=== PATIENT | female | born 1950 | race Caucasian/White ===

== ENCOUNTER 2019-04-14 01:43 | Emergency (ER) | payer MEDICARE ==
[~2019-04-14] VITALS: Ht 152.4 cm; Wt 61.2 kg
[2019-04-14] MEDS ORDERED: BENZOCAINE ONE 20% MUCOSAL SPRAY. (01:50)
[2019-04-14] MEDS ORDERED: IV RINGERS SOLUTION,LACTATED 1,000 ML IV SCH (01:52)
--- NOTE | 2019-04-14 01:52 | ED.ADGEN ---
Past History Past Medical History: Constipation, GERD, Hypertension, Other Past Surgical History: Cholecystectomy, Other Adult General Chief Complaint Chief Complaint " I took one of my fiber pills and it got stuck.. ".."That was about one... I tried water... bread.. I tried vomiting.. but it still feels like it is stuck... 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 Pt. unable to swallow her saliva. Pt. has not had prior hx of esophageal strictures. Has had hx of gastritis and ulcer on prior EGD. Pt. normally follows with Dr. Perez. Review of Systems Review of Systems Constitutional: Denies fever or chills [] Eyes: Denies change in visual acuity, redness, or eye pain [] HENT: Denies nasal congestion or sore throat [] Complains of foreign body throat. Respiratory: Denies cough or shortness of breath [] Cardiovascular: No additional information not addressed in HPI [] GI: Denies abdominal pain, nausea, vomiting, bloody stools or diarrhea [] : Denies dysuria or hematuria [] Musculoskeletal: Denies back pain or joint pain [] Integument: Denies rash or skin lesions [] Neurologic: Denies headache, focal weakness or sensory changes [] Endocrine: Denies polyuria or polydipsia [] All other systems were reviewed and found to be within normal limits, except as documented in this note. Family History Family History Non-contributory. Current Medications Current Medications Current Medications Medications (Trade) Dose Ordered Sig/Caleb Start Time Stop Time Status Last Admin Dose Admin Benzocaine (Hurricaine One) 1 spray 1X ONCE 04/14/19 02:00 04/14/19 03:06 DC Famotidine (Pepcid Vial) 20 mg 1X ONCE 04/14/19 02:45 04/14/19 03:06 DC 04/14/19 02:50 20 MG Fentanyl Citrate (Fentanyl 2ml Vial) 50 mcg 1X ONCE 04/14/19 02:45 04/14/19 03:06 DC 04/14/19 02:50 50 MCG Lactated Ringer's 1,000 ml @ 100 mls/hr Q10H 04/14/19 01:52 04/14/19 03:27 DC 04/14/19 02:48 100 MLS/HR Allergies Allergies Allergies Coded Allergies Type Severity Reaction Last Updated Verified NSAIDS (Non-Steroidal Anti-Inflamma Allergy Intermediate 04/14/19 Yes morphine Allergy Unknown 04/14/19 Yes Physical Exam Physical Exam Constitutional: in acute distress, non-toxic appearance. [] HENT: Normocephalic, atraumatic, bilateral external ears normal, oropharynx moist, no oral exudates, nose normal. []Unable to swallow saliva. Eyes: PERRLA, EOMI, conjunctiva normal, no discharge. [] Neck: Normal range of motion, glottic level tenderness, supple, no stridor. [] Cardiovascular:Heart rate regular rhythm, no murmur [] Lungs & Thorax: Bilateral breath sounds equal at apexes on auscultation [] Abdomen: Bowel sounds normal, soft, no tenderness, no masses, no pulsatile masses. [] Old surgery scars. Skin: Warm, dry, no erythema, no rash. [] Back: No tenderness, no CVA tenderness. [] Extremities: No tenderness, no cyanosis, no clubbing, ROM intact, no edema. [] Scar Knees. Arthritic changes. Neurologic: Alert and oriented X 3, normal motor function, normal sensory function, no focal deficits noted. [] Psychologic: Affect anxious, judgement normal, mood normal. [] Current Patient Data Vital Signs Vital Signs Date Time Temp Pulse Resp B/P (MAP) Pulse Ox O2 Delivery O2 Flow Rate FiO2 04/14/19 02:49 73 20 145/100 (115) 96 Room Air 04/14/19 01:43 98.0 Lab Results Laboratory Tests Test 04/14/19 02:00 White Blood Count 6.5 x10^3/uL (4.0-11.0) Red Blood Count 4.67 x10^6/uL (3.50-5.40) Hemoglobin 13.2 g/dL (12.0-15.5) Hematocrit 40.5 % (36.0-47.0) Mean Corpuscular Volume 87 fL (79-100) Mean Corpuscular Hemoglobin 28 pg (25-35) Mean Corpuscular Hemoglobin Concent 33 g/dL (31-37) Red Cell Distribution Width 15.6 % (11.5-14.5) H Platelet Count 269 x10^3/uL (140-400) Neutrophils (%) (Auto) 59 % (31-73) Lymphocytes (%) (Auto) 29 % (24-48) Monocytes (%) (Auto) 9 % (0-9) Eosinophils (%) (Auto) 3 % (0-3) Basophils (%) (Auto) 0 % (0-3) Neutrophils # (Auto) 3.9 x10^3uL (1.8-7.7) Lymphocytes # (Auto) 1.9 x10^3/uL (1.0-4.8) Monocytes # (Auto) 0.6 x10^3/uL (0.0-1.1) Eosinophils # (Auto) 0.2 x10^3/uL (0.0-0.7) Basophils # (Auto) 0.0 x10^3/uL (0.0-0.2) Prothrombin Time 10.0 SEC (9.4-11.4) Prothrombin Time INR 1.0 (0.9-1.1) PTT 24 SEC (23-33) Sodium Level 140 mmol/L (136-145) Potassium Level 3.8 mmol/L (3.5-5.1) Chloride Level 106 mmol/L (98-107) Carbon Dioxide Level 25 mmol/L (21-32) Anion Gap 9 (6-14) Blood Urea Nitrogen 28 mg/dL (7-20) H Creatinine 0.8 mg/dL (0.6-1.0) Estimated GFR (Cockcroft-Gault) 71.3 Glucose Level 122 mg/dL (70-99) H Calcium Level 8.5 mg/dL (8.5-10.1) Magnesium Level 2.1 mg/dL (1.8-2.4) Total Bilirubin 0.3 mg/dL (0.2-1.0) Direct Bilirubin 0.1 mg/dL (0.0-0.2) Aspartate Amino Transferase (AST) 70 U/L (15-37) H Alanine Aminotransferase (ALT) 124 U/L (14-59) H Alkaline Phosphatase 86 U/L (46-116) Creatine Kinase 127 U/L (26-192) Troponin I Quantitative < 0.017 ng/mL (0-0.055) BD-Fsd-F-Type Natriuretic Peptide 76 pg/mL (0-124) Total Protein 6.9 g/dL (6.4-8.2) Albumin 3.6 g/dL (3.4-5.0) Lipase 158 U/L (73-393) EKG EKG [] Radiology/Procedures Radiology/Procedures My interpretation of Chest Xray- no acute cardiopulmonary changes. Clips Rt. upper abd. [] Course & Med Decision Making Course & Med Decision Making Pertinent Labs and Imaging studies reviewed. (See chart for details) Discussed presentation, testing and tx plan with Dr. Dawkins and Dr. Isaac - GI at [facility]. Pt. to be transfer to [facility] [] Final Impression Final Impression 1. Dysphagia[]-Pill lodged in throat 2. Mild Elevation AST/ALT 70/129 3. Elevated Glucose 122 4. Elevated BUN 28 Dragon Disclaimer Dragon Disclaimer This electronic medical record was generated, in whole or in part, using a voice recognition dictation system. Discharge Summary Visit Information Final Diagnosis Problems Medical Problems: (1) Foreign body Status: Acute Brief Hospital Course Allergies Allergies Coded Allergies Type Severity Reaction Last Updated Verified NSAIDS (Non-Steroidal Anti-Inflamma Allergy Intermediate 04/14/19 Yes morphine Allergy Unknown 04/14/19 Yes Vital Signs Vital Signs Date Time Temp Pulse Resp B/P (MAP) Pulse Ox O2 Delivery O2 Flow Rate FiO2 04/14/19 02:49 73 20 145/100 (115) 96 Room Air 04/14/19 01:43 98.0 Lab Results Laboratory Tests Test 04/14/19 02:00 White Blood Count 6.5 x10^3/uL (4.0-11.0) Red Blood Count 4.67 x10^6/uL (3.50-5.40) Hemoglobin 13.2 g/dL (12.0-15.5) Hematocrit 40.5 % (36.0-47.0) Mean Corpuscular Volume 87 fL (79-100) Mean Corpuscular Hemoglobin 28 pg (25-35) Mean Corpuscular Hemoglobin Concent 33 g/dL (31-37) Red Cell Distribution Width 15.6 % (11.5-14.5) Platelet Count 269 x10^3/uL (140-400) Neutrophils (%) (Auto) 59 % (31-73) Lymphocytes (%) (Auto) 29 % (24-48) Monocytes (%) (Auto) 9 % (0-9) Eosinophils (%) (Auto) 3 % (0-3) Basophils (%) (Auto) 0 % (0-3) Neutrophils # (Auto) 3.9 x10^3uL (1.8-7.7) Lymphocytes # (Auto) 1.9 x10^3/uL (1.0-4.8) Monocytes # (Auto) 0.6 x10^3/uL (0.0-1.1) Eosinophils # (Auto) 0.2 x10^3/uL (0.0-0.7) Basophils # (Auto) 0.0 x10^3/uL (0.0-0.2) Prothrombin Time 10.0 SEC (9.4-11.4) Prothromb Time International Ratio 1.0 (0.9-1.1) Activated Partial Thromboplast Time 24 SEC (23-33) Sodium Level 140 mmol/L (136-145) Potassium Level 3.8 mmol/L (3.5-5.1) Chloride Level 106 mmol/L (98-107) Carbon Dioxide Level 25 mmol/L (21-32) Anion Gap 9 (6-14) Blood Urea Nitrogen 28 mg/dL (7-20) Creatinine 0.8 mg/dL (0.6-1.0) Estimated GFR (Cockcroft-Gault) 71.3 Glucose Level 122 mg/dL (70-99) Calcium Level 8.5 mg/dL (8.5-10.1) Magnesium Level 2.1 mg/dL (1.8-2.4) Total Bilirubin 0.3 mg/dL (0.2-1.0) Direct Bilirubin 0.1 mg/dL (0.0-0.2) Aspartate Amino Transf (AST/SGOT) 70 U/L (15-37) Alanine Aminotransferase (ALT/SGPT) 124 U/L (14-59) Alkaline Phosphatase 86 U/L (46-116) Creatine Kinase 127 U/L (26-192) Troponin I Quantitative < 0.017 ng/mL (0-0.055) SB-Krk-R-Type Natriuretic Peptide 76 pg/mL (0-124) Total Protein 6.9 g/dL (6.4-8.2) Albumin 3.6 g/dL (3.4-5.0) Lipase 158 U/L (73-393) Brief Hospital Course Ms. Carpenter is a 68 old female who presented with foreign body sensation of pill stuck in throat. Transfer to [facility] Dr. Dawkins, and GI Consult Dr. Isaac. Discharge Information Dischare Medications Current Medications Benzocaine (Hurricaine One) 1 spray STK-MED ONCE .ROUTE ; Start 04/14/19 at 01:50; Stop 04/14/19 at 01:51; Status DC Lactated Ringer's 1,000 ml @ 100 mls/hr Q10H IV Last administered on 04/14/19at 02:48; Admin Dose 100 MLS/HR; Start 04/14/19 at 01:52; Stop 04/14/19 at 03:27; Status DC Benzocaine (Hurricaine One) 1 spray 1X ONCE MM ; Start 04/14/19 at 02:00; Stop 04/14/19 at 03:06; Status DC Fentanyl Citrate (Fentanyl 2ml Vial) 50 mcg 1X ONCE IV Last administered on 04/14/19at 02:50; Admin Dose 50 MCG; Start 04/14/19 at 02:45; Stop 04/14/19 at 03:06; Status DC Famotidine (Pepcid Vial) 20 mg 1X ONCE IVP Last administered on 04/14/19at 02:50; Admin Dose 20 MG; Start 04/14/19 at 02:45; Stop 04/14/19 at 03:06; Status DC Dragon Disclaimer This chart was dictated in whole or in part using Voice Recognition software in a busy, high-work load, and often noisy Emergency Department environment. It may contain unintended and wholly unrecognized errors or omissions. GINI HEART MD Apr 14, 2019 01:52
[2019-04-14] MEDS ORDERED: BENZOCAINE ONE 20% MUCOSAL SPRAY. MM (02:00)
[2019-04-14 02:23] LABS: BASO % 0 % (0-3); EOS # 0.2 x10^3/uL (0.0-0.7); EOS % 3 % (0-3); HEMATOCRIT 40.5 % (36.0-47.0); HEMOGLOBIN 13.2 g/dL (12.0-15.5); LYMPH # 1.9 x10^3/uL (1.0-4.8); LYMPH % 29 % (24-48); MEAN CORPUSCULAR HEMOGLOBIN 28 pg (25-35); MEAN CORPUSCULAR HGB CONC 33 g/dL (31-37); MEAN CORPUSCULAR VOLUME 87 fL (79-100); MONO # 0.6 x10^3/uL (0.0-1.1); MONO % 9 % (0-9); NEUT # 3.9 x10^3uL (1.8-7.7); NEUT % 59 % (31-73); PLATELET COUNT 269 x10^3/uL (140-400); RED BLOOD COUNT 4.67 x10^6/uL (3.50-5.40); RED CELL DISTRIBUTION WIDTH 15.6 % (11.5-14.5); WHITE BLOOD COUNT 6.5 x10^3/uL (4.0-11.0)
[2019-04-14 02:40] LABS: ALBUMIN 3.6 g/dL (3.4-5.0); CALCIUM 8.5 mg/dL (8.5-10.1); CREATININE 0.8 mg/dL (0.6-1.0); DIRECT BILIRUBIN 0.1 mg/dL (0.0-0.2); GFR 71.3; MAGNESIUM 2.1 mg/dL (1.8-2.4); POTASSIUM 3.8 mmol/L (3.5-5.1); TOTAL BILIRUBIN 0.3 mg/dL (0.2-1.0); TOTAL PROTEIN 6.9 g/dL (6.4-8.2)
[2019-04-14] MEDS ORDERED: FAMOTIDINE 20 MG/2 ML VIAL IVP ONE (02:45)
[2019-04-14 02:49] VITALS: BP 145/100
--- NOTE | 2019-04-14 08:33 | RAD ---
CHEST PA LATERAL History: Dysphagia Comparison: None. Findings: 2 views of the chest are submitted. There is somewhat round opacity near the left lung base. No lobar infiltrate is identified. There is no dependent pleural fluid or pneumothorax. Impression: 1. There is no infiltrate. 2. There is possible lung nodule of the left lung base better evaluated by CT. Findings of possible nodule were discussed with Dr. Roca at 04/14/2019 8:02 AM. Electronically signed by: Thomas Hays MD (04/14/2019 8:30 AM) [id number]
--- NOTE | 2019-04-14 16:32 | DS ---
DATE OF DISCHARGE: 04/14/2019 HOSPITAL COURSE: The patient was seen initially in the Emergency Room of [facility] for impacted pill in her esophagus. She could not swallow even her saliva and was transferred to [facility]. She was seen in consultation by the Gastroenterology team and underwent esophagogastroduodenoscopy for impacted pill that apparently has passed spontaneously and in the esophagus there is no foreign body. Some petechiae, probably site of enlargement at the cricopharyngeal an irregular Z-line. She is status post distal gastrectomy and Bill anastomosis with gabino at anastomoses. No ulcers, although both limbs were inspected with no lesions and patient did very well and was allowed to eat and has no problem with that and decision was made to discharge her home to continue on her Adderall and duloxetine and lisinopril. PHYSICAL EXAMINATION: VITAL SIGNS: On discharge day, the patient was hemodynamically stable, afebrile. Her heart rate was 72, blood pressure was 130/59, temperature was 97.9, respiratory rate was 18 and oxygen saturation was 100%. The rest of clinical exam is stable. LABORATORY DATA: Her lab works are all within normal range. FINAL DISCHARGE DIAGNOSES: Impacted pill in the esophagus, passed spontaneously. No evidence of any stricture or tumor. Other medical problems include hypertension, depression and gastric ulcer. PABLO HOLLEY MD DR: MEMO/kenyetta JOB#: [id number] / [id number]
== END 2019-04-14 03:23 | disposition short-term general hospital (02) ==
LOC: EDBD 01:43 → ER 01:43
DX: T18.198A Other foreign object in esophagus causing other injury, initial encounter (principal); R13.10 Dysphagia, unspecified; R73.9 Hyperglycemia, unspecified; R79.89 Other specified abnormal findings of blood chemistry; R74.0 Nonspecific elevation of levels of transaminase and lactic acid dehydrogenase [LDH]; K21.9 Gastro-esophageal reflux disease without esophagitis; I10 Essential (primary) hypertension; Z88.6 Allergy status to analgesic agent; Z88.5 Allergy status to narcotic agent; X58.XXXA Exposure to other specified factors, initial encounter; Y93.89 Activity, other specified; Y92.89 Other specified places as the place of occurrence of the external cause; Y99.8 Other external cause status
CPT/HCPCS: 36415; 71046; 80048; 80076; 82550; 83690; 83735; 83880; 84484; 85025; 85610; 85730; 96374; 96375; 99285; J3010; J3490; J7120

== ENCOUNTER 2021-09-01 16:40 | Emergency (ER) | payer MEDICARE ==
[~2021-09-01] VITALS: Ht 152.4 cm; Wt 67.5 kg
[2021-09-01 18:02] LABS: BASO % 0 % (0-3); EOS # 0.1 x10^3/uL (0.0-0.7); EOS % 1 % (0-3); HEMATOCRIT 41.2 % (36.0-47.0); HEMOGLOBIN 13.6 g/dL (12.0-15.5); LYMPH # 1.3 x10^3/uL (1.0-4.8); LYMPH % 16 % (24-48); MEAN CORPUSCULAR HEMOGLOBIN 31 pg (25-35); MEAN CORPUSCULAR HGB CONC 33 g/dL (31-37); MEAN CORPUSCULAR VOLUME 93 fL (79-100); MONO # 0.5 x10^3/uL (0.0-1.1); MONO % 6 % (0-9); NEUT # 6.1 x10^3uL (1.8-7.7); NEUT % 77 % (31-73); PLATELET COUNT 287 x10^3/uL (140-400); RED BLOOD COUNT 4.44 x10^6/uL (3.50-5.40)
[2021-09-01 18:08] LABS: CALCIUM 9.4 mg/dL (8.5-10.1); CREATININE 0.7 mg/dL (0.6-1.0); GFR 82.5; POTASSIUM 4.6 mmol/L (3.5-5.1)
[2021-09-01 18:22] LABS: BILIRUBIN,URINE NEG (NEG); CLARITY,URINE CLEAR; COLOR,URINE YELLOW; GLUCOSE,URINE NEG (NEG)
[2021-09-01 18:23] LABS: BACTERIA,URINE 0 /HPF (0-FEW); HYALINE CASTS, URINE FEW /HPF; NITRITE,URINE NEG (NEG); SQUAMOUS EPITHELIAL CELL,UR FEW /LPF; UROBILINOGEN,URINE 0.2 mg/dL (0.2 mg/dL)
[2021-09-01 18:54] VITALS: BP 127/82
--- NOTE | 2021-09-01 18:59 | PHYS DOC ---
Past History Past Medical History: Constipation, GERD, Hypertension, Other (KOREY KRAFT) Past Surgical History: Cholecystectomy, , Gastric Bypass, Knee Replacement, Other Additional Past Surgical Histo: abdominoplasty, eyes (KOREY KRAFT) Alcohol Use: None Drug Use: None (KOREY KRAFT) General Adult EDM: Chief Complaint: ALTERED MENTAL STATUS HPI: HPI: Patient is a 71 year old female who presents with feeling "a little off." Patient states that she was conversing with her daughter on the phone today, when her daughter suggested she come to the emergency department for evaluation. She reports her daughter asked her some questions about her plans for next week, and she was unable to answer some of them correctly. Patient reports that she lives at home alone. She does admit to feeling "foggy." Patient has sole symptom of recently resolved diarrhea after starting a probiotic supplement. She states her daughter has become very vigilant about seeking evaluation since her daughter had a subarachnoid hemorrhage 1 year ago. Patient has no other complaints at this time. (KOREY KRAFT) Review of Systems: Review of Systems: 12 systems reviewed. ROS negative except as mentioned in HPI. (KOREY KRAFT) Allergies: Allergies: Allergies Coded Allergies Type Severity Reaction Last Updated Verified NSAIDS (Non-Steroidal Anti-Inflamma Allergy Intermediate 04/14/19 Yes morphine Allergy Unknown 04/14/19 Yes (KOREY KRAFT) Physical Exam: PE: Constitutional: Well developed, well nourished, no acute distress, non-toxic appearance. HENT: Normocephalic, atraumatic, bilateral external ears normal, oropharynx moist, no oral exudates, nose normal. Eyes: PERRLA, EOMI, conjunctiva normal, no discharge. Neck: Normal range of motion, no tenderness, supple, no stridor. Cardiovascular: Heart rate regular rhythm, no murmur. Lungs & Thorax: Bilateral breath sounds clear to auscultation. Abdomen: Bowel sounds normal, soft, no tenderness, no masses, no pulsatile masses. Skin: Warm, dry, no erythema, no rash. Back: No step-offs, no tenderness, no CVA tenderness. Extremities: No tenderness, no cyanosis, no clubbing, ROM intact, no edema. Neurologic: Alert and oriented X 3, normal motor function, no focal deficits noted. Psychologic: Affect pleasant, good judgment, mood "just want to get checked out." (KOREY KRAFT) Current Patient Data: Labs: Laboratory Tests Test 09/01/21 17:28 White Blood Count 8.0 x10^3/uL (4.0-11.0) Red Blood Count 4.44 x10^6/uL (3.50-5.40) Hemoglobin 13.6 g/dL (12.0-15.5) Hematocrit 41.2 % (36.0-47.0) Mean Corpuscular Volume 93 fL (79-100) Mean Corpuscular Hemoglobin 31 pg (25-35) Mean Corpuscular Hemoglobin Concent 33 g/dL (31-37) Red Cell Distribution Width 13.0 % (11.5-14.5) Platelet Count 287 x10^3/uL (140-400) Neutrophils (%) (Auto) 77 % (31-73) H Lymphocytes (%) (Auto) 16 % (24-48) L Monocytes (%) (Auto) 6 % (0-9) Eosinophils (%) (Auto) 1 % (0-3) Basophils (%) (Auto) 0 % (0-3) Neutrophils # (Auto) 6.1 x10^3uL (1.8-7.7) Lymphocytes # (Auto) 1.3 x10^3/uL (1.0-4.8) Monocytes # (Auto) 0.5 x10^3/uL (0.0-1.1) Eosinophils # (Auto) 0.1 x10^3/uL (0.0-0.7) Basophils # (Auto) 0.0 x10^3/uL (0.0-0.2) Urine Collection Type Unknown Urine Color Yellow Urine Clarity Clear Urine pH 5.0 Urine Specific Thurmond 1.020 Urine Protein Neg (NEG-TRACE) Urine Glucose (UA) Neg mg/dL (NEG) Urine Ketones (Stick) Neg mg/dL (NEG) Urine Blood Neg (NEG) Urine Nitrite Neg (NEG) Urine Bilirubin Neg (NEG) Urine Urobilinogen Dipstick 0.2 mg/dL (0.2 mg/dL) Urine Leukocyte Esterase Neg (NEG) Urine RBC 1-2 /HPF (0-2) Urine WBC 1-4 /HPF (0-4) Urine Squamous Epithelial Cells Few /LPF Urine Bacteria 0 /HPF (0-FEW) Urine Hyaline Casts Few /HPF Urine Mucus Slight /LPF Sodium Level 136 mmol/L (136-145) Potassium Level 4.6 mmol/L (3.5-5.1) Chloride Level 103 mmol/L (98-107) Carbon Dioxide Level 24 mmol/L (21-32) Anion Gap 9 (6-14) Blood Urea Nitrogen 14 mg/dL (7-20) Creatinine 0.7 mg/dL (0.6-1.0) Estimated GFR (Cockcroft-Gault) 82.5 Glucose Level 104 mg/dL (70-99) H Calcium Level 9.4 mg/dL (8.5-10.1) Troponin I High Sensitivity 5 ng/L (4-50) Vital Signs: Vital Signs Date Time Temp Pulse Resp B/P (MAP) Pulse Ox O2 Delivery O2 Flow Rate FiO2 09/01/21 18:54 77 16 127/82 (97) 98 Room Air 09/01/21 17:05 98.5 (KOREY KRAFT) Heart Score: C/O Chest Pain: No (KOREY KRAFT) Course & Med Decision Making: Course & Med Decision Making Pertinent Labs and Imaging studies reviewed. (See chart for details) Patient's work-up today is unremarkable. Discussed with the patient that poor quality sleep can sometimes lead to mental "fog" that she describes. Discussed neurological evaluation with the patient. Should she have persistent or worsening memory problems, she should seek further evaluation. Patient understands and is agreeable to discharge plan. (KOREY KRAFT) Dragon Disclaimer: Dragon Disclaimer: This electronic medical record was generated, in whole or in part, using a voice recognition dictation system. (KOREY KRAFT) Attending Co-Sign The patient was seen and interviewed as well as examined at the bedside. The chart was reviewed. The case was discussed. Agree with the plan of care. (DANIELITO LONG DO) Departure Departure: Impression: Primary Impression: Encounter for medical screening examination Additional Impression: Fatigue Qualified Codes: R53.83 - Other fatigue Disposition: HOME / SELF CARE / HOMELESS Condition: STABLE Referrals: BRITNEY DAVIDSON (PCP) OLIVER BALDERRAMA MD Patient Instructions: Health Maintenance, Females Additional Instructions: Your work-up today did not reveal any anemia, electrolyte abnormalities or urinary tract infection. It is possible that you were fatigued today and therefore not feeling your best. If your memory issues should persist, you may follow-up with Dr. Balderrama, who is a neurologist. Please return to the emergency department if you develop new symptoms. KOREY KRAFT Sep 01, 2021 18:59 DANIELITO LONG DO Sep 02, 2021 20:56
== END 2021-09-01 19:17 | disposition home or self-care (01) ==
LOC: ER 16:40
DX: R53.83 Other fatigue (principal); R41.82 Altered mental status, unspecified; K21.9 Gastro-esophageal reflux disease without esophagitis; I10 Essential (primary) hypertension; Z13.9 Encounter for screening, unspecified; Z88.5 Allergy status to narcotic agent; Z90.49 Acquired absence of other specified parts of digestive tract
CPT/HCPCS: 36415; 80048; 81001; 84484; 85025; 99283-25